=== PATIENT | female | born 1955 ===

== ENCOUNTER 2020-10-31 09:16 | Inpatient (IN) | payer MEDICARE, OTHER ==
[~2020-10-31] VITALS: Ht 175.2 cm; Wt 71.8 kg
[2020-10-31] MEDS ORDERED: ATIVAN0.5 MG PO (11:30)
[2020-10-31] MEDS ORDERED: ASPIRIN CHEWABL81 MG PO (11:30)
[2020-10-31] MEDS ORDERED: CALCIUM CARBON600 M5 PO (11:31)
[2020-10-31] MEDS ORDERED: GLUCOSAMINE CH1 EAC5 PO (11:41)
[2020-10-31] MEDS ORDERED: OSTEO BI-FLEX1 EACH PO (11:41)
[2020-10-31] MEDS ORDERED: PEPCID COMPLET1 EACH PO (11:42)
[2020-10-31] MEDS ORDERED: REMERON15 M2 PO (11:43)
[2020-10-31] MEDS ORDERED: REQUIP2 MG PO (11:44)
[2020-10-31] MEDS ORDERED: TRAZODONE100 MG PO (11:48)
[2020-10-31] MEDS ORDERED: VITAMIN B121000 MC1 PO (11:49)
[2020-10-31] MEDS ORDERED: VITAMIN D3125 MCG PO (11:49)
[2020-10-31] MEDS ORDERED: ELEMENTAL ZINC30 MG PO (11:50)
[2020-10-31] MEDS ORDERED: ROZEREM8 MG PO (12:00)
[2020-10-31 23:00] VITALS: BP 116/77
[2020-11-01 06:26] LABS: CHOLESTEROL 158 mg/dL (<200); HDL CHOLESTEROL 37 mg/dl (40-60); LDL CHOLESTEROL 99 mg/dL (9-159); TRIGLYCERIDES 111 mg/dl (<150); VLDL CHOLESTEROL 22 mg/dL (6-40)
[2020-11-01 07:02] LABS: VITAMIN D, 25-HYDROXY 59.1 ng/mL (30-100)
[2020-11-01 07:46] VITALS: BP 145/89
[2020-11-01 20:00] VITALS: BP 145/82
[2020-11-02 06:33] VITALS: BP 137/86
[2020-11-02 20:00] VITALS: BP 133/68
[2020-11-03 07:30] VITALS: BP 122/80
[2020-11-03 19:25] VITALS: BP 108/70
[2020-11-04 07:36] VITALS: BP 120/78
[2020-11-04 20:00] VITALS: BP 115/75
[2020-11-05 07:37] VITALS: BP 121/67
[2020-11-05 20:00] VITALS: BP 108/62
[2020-11-06 07:53] VITALS: BP 136/82
[2020-11-06 20:00] VITALS: BP 121/71
[2020-11-07 07:16] VITALS: BP 128/75
[2020-11-07 19:48] VITALS: BP 128/80
[2020-11-08 07:26] VITALS: BP 132/86
[2020-11-08 20:00] VITALS: BP 125/86
[2020-11-09 07:33] VITALS: BP 127/69
[2020-11-09] MEDS ORDERED: FLUVOXAMINE50 MG PO (08:50)
[2020-11-09] MEDS ORDERED: BENZTROPINE ME0.5 MG PO ×2 (08:50)
[2020-11-09] MEDS ORDERED: OLANZAPINE5 MG PO (08:50)
[2020-11-09] MEDS ORDERED: CLONAZEPAM1 MG PO (08:50)
[2020-11-09] MEDS ORDERED: 'KLONOPIN0.5 MG PO (08:50)
[2020-11-09 20:00] VITALS: BP 127/69; BP 129/71
[2020-11-10 07:44] VITALS: BP 108/63
== END 2020-11-10 19:32 | disposition home or self-care (01) | DRG 885 ==
LOC: 3N 09:16 → EDSTATUS 18:50 → 3N 19:25
PROVIDERS: Counselor Professional; ADMIT Psychiatry & Neurology Psychiatry; ATTEND Psychiatry & Neurology Psychiatry
DX: F33.2 Major depressive disorder, recurrent severe without psychotic features (principal); F41.1 Generalized anxiety disorder; D47.3 Essential (hemorrhagic) thrombocythemia; I10 Essential (primary) hypertension; K21.9 Gastro-esophageal reflux disease without esophagitis; R82.71 Bacteriuria; G25.81 Restless legs syndrome; R00.0 Tachycardia, unspecified; Z84.1 Family history of disorders of kidney and ureter; Z88.0 Allergy status to penicillin; Z88.8 Allergy status to other drugs, medicaments and biological substances; Z79.899 Other long term (current) drug therapy

== ENCOUNTER 2020-11-20 22:51 | Inpatient (IN) | payer MEDICARE, OTHER ==
[~2020-11-20] VITALS: Ht 177.8 cm; Wt 70.9 kg
[~2020-11-20 22:51] MED LIST: 'KLONOPIN0.5 MG PO; ASPIRIN CHEWABL81 MG PO; ATIVAN0.5 MG PO; BENZTROPINE ME0.5 MG PO; CALCIUM CARBON600 M5 PO; CLONAZEPAM1 MG PO; ELEMENTAL ZINC30 MG PO; FLUVOXAMINE50 MG PO; GLUCOSAMINE CH1 EAC5 PO; OLANZAPINE5 MG PO; OSTEO BI-FLEX1 EACH PO; PEPCID COMPLET1 EACH PO; REMERON15 M2 PO; REQUIP2 MG PO; ROZEREM8 MG PO; TRAZODONE100 MG PO; VITAMIN B121000 MC1 PO; VITAMIN D3125 MCG PO
[2020-11-21] MEDS ORDERED: ROPINIROLE HYDRO1 MG PO (04:45)
[2020-11-21] MEDS ORDERED: INVEGA3 MG PO (06:08)
[2020-11-21 10:23] VITALS: BP 153/85
[2020-11-21] MEDS ORDERED: COGENTIN0.5 MG PO (13:23)
[2020-11-21 20:00] VITALS: BP 114/62
[2020-11-22 06:28] LABS: CHLORIDE 112 mmol/L (98-107); POTASSIUM 3.5 mmol/L (3.5-5.1); SODIUM 143 mmol/L (136-145)
[2020-11-22 06:30] LABS: BASO % 0.9 % (0.0-1.0); EOS # 0.2 10*3/uL (0.0-0.4); EOS % 4.3 % (1.0-4.0); HEMATOCRIT 35.6 % (37.0-47.0); LYMPH # 1.9 10*3/uL (1.3-4.4); LYMPH % 40.9 % (27.0-41.0); MEAN CELL VOLUME 94.7 fl (81.0-99.0); MEAN CORPUSCULAR HGB 30.3 pg (27.0-31.0); MEAN PLATELET VOLUME 10.3 fl (9.6-12.3); MONO # 0.4 10*3/uL (0.1-1.0); MONO % 8.7 % (3.0-9.0); NEUT # 2.1 10*3/uL (2.3-7.9); PLATELET COUNT AUTOMATED 226 10*3/uL (130-400); RED BLOOD COUNT 3.76 10*6/uL (4.10-5.10); RED CELL DISTRI WIDTH 14.4 % (0-14.5); WHITE BLOOD COUNT 4.6 10*3/uL (4.8-10.8)
[2020-11-22 06:47] LABS: ALBUMIN 2.8 gm/dl (3.1-4.5); ALKALINE PHOSPHATASE 94 U/L (45-117); BUN 15 mg/dl (7-24); CHOLESTEROL 155 mg/dL (<200); CREATININE 0.82 mg/dL (0.55-1.02); FREE T4 1.18 ng/dl (0.76-1.46); HDL CHOLESTEROL 44 mg/dl (40-60); LDL CHOLESTEROL 92 mg/dL (9-159); SGOT/AST 17 IU/L (3-35); SGPT/ALT 28 U/L (12-78); THYROID STIM HORMONE (HS) 0.071 uIU/ml (0.358-4.75); TOTAL PROTEIN 5.5 gm/dL (6.4-8.2); TRIGLYCERIDES 97 mg/dl (<150); VLDL CHOLESTEROL 19 mg/dL (6-40)
[2020-11-22 06:55] LABS: BILIRUBIN Negative (Negative); BLOOD Trace-Lysed (Negative); CLARITY Cloudy (Clear); COLOR Yellow (Yellow); GLUCOSE Negative (Negative); KETONE Trace (Negative); LEUKO ESTERASE 2+ (Negative); NITRITE Negative (Negative); PH 5.5 (4.5-8.0); SPECIFIC GRAVITY 1.025 (1.001-1.030)
[2020-11-22 07:18] LABS: BACTERIA 2+; CALCIUM OXALATE CRYSTALS 1+; WBC TNTC wbc/hpf (0-5)
[2020-11-22 07:32] LABS: VITAMIN D, 25-HYDROXY 73.2 ng/mL (30-100)
[2020-11-22 07:42] VITALS: BP 112/64
[2020-11-22 20:00] VITALS: BP 135/84
[2020-11-23 07:35] VITALS: BP 112/65
[2020-11-23 20:00] VITALS: BP 107/70
[2020-11-24 07:51] VITALS: BP 146/85
[2020-11-24 19:04] VITALS: BP 140/88
[2020-11-25 07:54] VITALS: BP 144/88
[2020-11-25 20:00] VITALS: BP 126/73
[2020-11-26 07:28] VITALS: BP 145/75
[2020-11-26 19:06] VITALS: BP 120/90
[2020-11-26 22:06] LABS: CLONAZEPAM (KLONOPIN),SERUM 26 ng/mL (20-70)
[2020-11-27 07:10] VITALS: BP 120/86
[2020-11-27 20:00] VITALS: BP 141/81
[2020-11-28 08:19] VITALS: BP 158/84
[2020-11-28 11:04] LABS: BILIRUBIN Negative (Negative); BLOOD Negative (Negative); CLARITY Clear (Clear); COLOR Yellow (Yellow); GLUCOSE Negative (Negative); KETONE Negative (Negative); LEUKO ESTERASE Negative (Negative); NITRITE Negative (Negative); UROBILINOGEN 0.2 E.U./dl (0.0-1.0)
[2020-11-28 11:12] LABS: PH 8.5 (4.5-8.0)
[2020-11-28 20:00] VITALS: BP 130/85
[2020-11-29 07:41] VITALS: BP 140/76
[2020-11-29 20:00] VITALS: BP 130/82
[2020-11-30 07:51] VITALS: BP 136/82
[2020-11-30 20:00] VITALS: BP 125/78
[2020-12-01 07:21] VITALS: BP 137/78
[2020-12-01 11:43] LABS: BASO % 0.7 % (0.0-1.0); EOS # 0.2 10*3/uL (0.0-0.4); EOS % 2.8 % (1.0-4.0); HEMATOCRIT 40.5 % (37.0-47.0); LYMPH # 1.6 10*3/uL (1.3-4.4); LYMPH % 29.5 % (27.0-41.0); MEAN CELL VOLUME 93.1 fl (81.0-99.0); MEAN CORPUSCULAR HGB 30.3 pg (27.0-31.0); MEAN CORPUSCULAR HGB CONC 32.6 g/dl (33.0-37.0); MONO # 0.4 10*3/uL (0.1-1.0); MONO % 6.6 % (3.0-9.0); NEUT # 3.3 10*3/uL (2.3-7.9); NEUT % 60.2 % (47.0-73.0); PLATELET COUNT AUTOMATED 269 10*3/uL (130-400); RED BLOOD COUNT 4.35 10*6/uL (4.10-5.10); RED CELL DISTRI WIDTH 14.5 % (0-14.5); WHITE BLOOD COUNT 5.4 10*3/uL (4.8-10.8)
[2020-12-01 12:12] LABS: ALBUMIN 3.6 gm/dl (3.1-4.5); ALKALINE PHOSPHATASE 107 U/L (45-117); BUN 9 mg/dl (7-24); CHLORIDE 110 mmol/L (98-107); CREATININE 1.09 mg/dL (0.55-1.02); POTASSIUM 3.8 mmol/L (3.5-5.1); SGOT/AST 13 IU/L (3-35); SGPT/ALT 25 U/L (12-78); SODIUM 142 mmol/L (136-145); TOTAL PROTEIN 6.6 gm/dL (6.4-8.2)
[2020-12-01 20:00] VITALS: BP 145/89
[2020-12-02 07:56] VITALS: BP 157/88
[2020-12-02] MEDS ORDERED: ROPINIROLE HYDRO1 MG PO (10:43)
[2020-12-02] MEDS ORDERED: VITAMIN E400 UNI3 PO (10:43)
[2020-12-02] MEDS ORDERED: RIVASTIGMINE1 EAC1 T (10:43)
[2020-12-02] MEDS ORDERED: FLUVOXAMINE MA100 MG PO (11:06)
[2020-12-02] MEDS ORDERED: FLUVOXAMINE50 MG PO (11:06)
[2020-12-02] MEDS ORDERED: PROTONIX40 MG PO ×2 (14:34→16:17)
== END 2020-12-02 19:06 | disposition home health service (06) | DRG 885 ==
LOC: 3N 22:51
PROVIDERS: Counselor Professional; ADMIT Psychiatry & Neurology Psychiatry; ATTEND Psychiatry & Neurology Psychiatry
DX: F33.3 Major depressive disorder, recurrent, severe with psychotic symptoms (principal); N39.0 Urinary tract infection, site not specified; R41.9 Unspecified symptoms and signs involving cognitive functions and awareness; G25.81 Restless legs syndrome; K21.9 Gastro-esophageal reflux disease without esophagitis; I10 Essential (primary) hypertension; F41.1 Generalized anxiety disorder; Z88.0 Allergy status to penicillin; Z88.8 Allergy status to other drugs, medicaments and biological substances